=== PATIENT | male | born 1970 | race African-American/Black ===

== ENCOUNTER 2017-12-01 13:44 | Inpatient (IN) | payer BC, OTHER ==
[~2017-12-01] VITALS: Ht 188 cm; Wt 98.7 kg
[2017-12-01 15:43] LABS: Urine Bacteria NONE SEEN /hpf (None Seen); Urine Blood Negative /uL (Negative); Urine Mucus FEW (None Seen); Urine Specific Gravity 1.023 (1.001-1.035); Urine WBC <1 /hpf (0 - 3)
[2017-12-01 15:51] LABS: BUN/Creatinine Ratio 10.1; Bilirubin, Total 0.9 mg/dL (0.2-1.0); Calcium 9.2 mg/dL (8.5-10.1); Potassium 4.4 mmol/L (3.5-5.1)
[2017-12-01 15:54] LABS: Basophils # (auto) 0 uL; Basophils % (auto) 0.3 % (0.0-2.0); Eosinophils # (auto) 0 uL; Eosinophils % (auto) 0.3 % (0.0-7.0); Hematocrit 47.4 % (41.0-53.0); Hemoglobin 15.6 g/dL (13.5-17.5); Lymphocytes # (auto) 1.6 uL; Lymphocytes % (auto) 19.8 % (10.0-50.0); Mean Corpuscular Hemoglobin 27.6 pg (28.0-32.0); Mean Corpuscular Hgb Conc. 32.9 g/dL (32.0-36.0); Mean Corpuscular Volume 83.9 fL (80.0-100.0); Monocytes # (auto) 0.7 uL; Monocytes % (auto) 8.3 % (0.0-12.0); Neutrophils # (auto) 5.9 uL; Neutrophils % (auto) 71.3 % (37.0-80.0); Nucleated Red Blood Cells % 0.2 %; Platelet Count (auto) 190 10^3/uL (140-450); Red Blood Cells 5.65 10^6/uL (4.5-5.90); Red Cell Distribution Width 13.7 % (11.8-14.3); White Blood Cell 8.3 10^3/uL (4.4-10.8)
[2017-12-01] MEDS ORDERED: SODIUM CHLORIDE 0.9% 1,000 ML IVB ONE (16:12)
[2017-12-01] MEDS ORDERED: MORPHINE SULFATE 4 MG/ML SYR/VIAL IV ONE (16:15)
[2017-12-01] MEDS ORDERED: metroNIDAZOLE 500MG/100ML 100 ML IV ONE (16:15)
[2017-12-01] MEDS ORDERED: METOCLOPRAMIDE HCL 5MG/ml INJ 2ml VIAL IV ONE (16:15)
[2017-12-01] MEDS ORDERED: LEVOFLOXACIN 500MG 100 ML IV ONE ×2 (16:45→18:00)
[2017-12-01] MEDS ORDERED: ACETAMINOPHEN 500 MG TAB PO PRN (16:45)
[2017-12-01] MEDS ORDERED: MORPHINE SULF INJ 2 MG/ML SYRINGE 1ML IV PRN (16:45)
[2017-12-01] MEDS ORDERED: PROMETHAZINE HCL 25 MG/ML 1ML IV PRN (16:45)
[2017-12-01] MEDS: SODIUM CHLORIDE 0.9% 1,000 ML IV SCH ×2 (18:11→23:27)
[2017-12-01] MEDS: metroNIDAZOLE 500MG/100ML 100 ML IV SCH (22:24)
[2017-12-01] MEDS: HYDROcodone-ACET 5/325MG TAB PO PRN (23:25)
[2017-12-01 23:44] VITALS: BP 106/74
[2017-12-02 05:00] VITALS: BP 128/74
[2017-12-02] MEDS: metroNIDAZOLE 500MG/100ML 100 ML IV SCH ×3 (06:06→22:00)
[2017-12-02] MEDS: HYDROcodone-ACET 5/325MG TAB PO PRN (06:20)
[2017-12-02 07:33] LABS: Basophils # (auto) 0 uL; Basophils % (auto) 0.2 % (0.0-2.0); Eosinophils # (auto) 0 uL; Eosinophils % (auto) 0.1 % (0.0-7.0); Hematocrit 42.1 % (41.0-53.0); Hemoglobin 14.1 g/dL (13.5-17.5); Lymphocytes # (auto) 1.6 uL; Lymphocytes % (auto) 19.6 % (10.0-50.0); Mean Corpuscular Hemoglobin 28.2 pg (28.0-32.0); Mean Corpuscular Hgb Conc. 33.5 g/dL (32.0-36.0); Mean Corpuscular Volume 84.3 fL (80.0-100.0); Monocytes # (auto) 0.8 uL; Monocytes % (auto) 9.5 % (0.0-12.0); Neutrophils # (auto) 5.8 uL; Neutrophils % (auto) 70.6 % (37.0-80.0); Nucleated Red Blood Cells % 0.1 %; Platelet Count (auto) 168 10^3/uL (140-450); Red Blood Cells 4.99 10^6/uL (4.5-5.90); Red Cell Distribution Width 13.7 % (11.8-14.3); White Blood Cell 8.2 10^3/uL (4.4-10.8)
[2017-12-02 08:00] VITALS: BP 130/82
[2017-12-02 08:00] LABS: BUN/Creatinine Ratio 10.1; Calcium 8.7 mg/dL (8.5-10.1); Potassium 4.1 mmol/L (3.5-5.1)
[2017-12-02] MEDS: LEVOFLOXACIN 500MG 100 ML IV SCH (09:10)
[2017-12-02 13:00] VITALS: BP 117/63
[2017-12-02] MEDS: SODIUM CHLORIDE 0.9% 1,000 ML IV SCH ×2 (13:06→22:50)
[2017-12-02 17:00] VITALS: BP 124/74
[2017-12-02 20:00] VITALS: BP 127/73
[2017-12-02 22:00] VITALS: BP 127/73
[2017-12-03] VITALS (7 sets, daily range): BP systolic 103–124; BP diastolic 5–73
[2017-12-03] MEDS: metroNIDAZOLE 500MG/100ML 100 ML IV SCH ×3 (05:33→21:49)
[2017-12-03 07:49] LABS: BUN/Creatinine Ratio 8.2; Calcium 8.6 mg/dL (8.5-10.1); Potassium 4.2 mmol/L (3.5-5.1)
[2017-12-03] MEDS: LEVOFLOXACIN 500MG 100 ML IV SCH (09:51)
[2017-12-03] MEDS: SODIUM CHLORIDE 0.9% 1,000 ML IV SCH ×2 (09:55→18:45)
[2017-12-04] MEDS: SODIUM CHLORIDE 0.9% 1,000 ML IV SCH (05:08)
[2017-12-04 05:14] VITALS: BP 126/58
[2017-12-04] MEDS: metroNIDAZOLE 500MG/100ML 100 ML IV SCH (06:09)
[2017-12-04 07:23] LABS: Potassium 4.2 mmol/L (3.5-5.1)
[2017-12-04 07:30] LABS: BUN/Creatinine Ratio 9.2; Calcium 8.8 mg/dL (8.5-10.1)
[2017-12-04 09:00] VITALS: BP 119/67
== END 2017-12-04 11:50 | disposition home or self-care (01) | DRG 683 ==
LOC: ER 13:49 → OVERFLOW 13:50 → CENTRAL 21:06
PROVIDERS: ADMIT Internal Medicine; ATTEND Internal Medicine
DX: N17.9 Acute kidney failure, unspecified (principal); K57.32 Diverticulitis of large intestine without perforation or abscess without bleeding; K76.89 Other specified diseases of liver; N18.3 Chronic kidney disease, stage 3 (moderate); N26.1 Atrophy of kidney (terminal); M54.9 Dorsalgia, unspecified
CPT/HCPCS: 36415; 74176; 76700; 80048; 80053; 81001; 83690; 85025; 94761; 96374; 96375; J1956; J3490